=== PATIENT | male | born 1975 | race Caucasian/White ===

== ENCOUNTER 2019-09-25 15:47 | Emergency (ER) | payer BC, OTHER ==
[2019-09-25] MEDS ORDERED: NA CHLORIDE 0.9% 1,000 ML ONE (16:52)
[2019-09-25 17:11] LABS: Absolute Lymphocytes (CBC) 1.3 K/uL (0.7-4.9); Basophils % 0.2 % (0-1.3); Hematocrit 37.6 % (39.6-49.0); Lymphocytes % 13.5 % (15.3-44.8); MPV 8.4 fL (7.6-11.3); RBC Red Blood Cell Count 4.12 M/uL (4.33-5.43)
[2019-09-25 17:27] LABS: Albumin 3.7 g/dL (3.4-5.0); Bilirubin Direct 0.1 mg/dL (0-0.2); Bilirubin Total 0.7 mg/dL (0.2-1.0); Potassium 3.9 mmol/L (3.5-5.1); Protein, Total 7.8 g/dL (6.4-8.2)
--- NOTE | 2019-09-25 17:41 | RAD REPORT ---
EXAM DESCRIPTION: RAD - Chest Single View - 09/25/2019 5:09 pm CLINICAL HISTORY: Cough, back pain COMPARISON: July 2014 TECHNIQUE: AP portable chest image was obtained 1700 hours . FINDINGS: No focal lung parenchymal process. Interstitial pattern is substantially similar to compar jhoan. Heart and vasculature are normal. No measurable pleural effusion and no pneumothorax. No acute bony abnormality seen. No acute aortic findings suspected. IMPRESSION: No acute cardiopulmonary process.
--- NOTE | 2019-09-25 17:57 | RAD REPORT ---
EXAM DESCRIPTION: CT - Abdomen Pelvis W Contrast - 09/25/2019 5:45 pm CLINICAL HISTORY: FLANK PAIN COMPARISON: None. TECHNIQUE: Biphasic, helical CT imaging of the abdomen and pelvis was performed following 100 ml non -ionic IV contrast. No oral contrast. All CT scans are performed using dose optimization technique as appropriate and may include automated exposure control or mA/KV adjustment according to patient size. FINDINGS: No suspicious findings in the lung bases. The liver, spleen, and pancreas show no suspicious findings. Gallbladder and biliary tree are also wi thout suspicious finding. Moderate severity left-sided hydronephrosis is present secondary to a cluster of obstructing calculi in the distal ureter approximately 3-4 cm from the bladder. The obstructing calcification is a cluste r of 1-4 mm calculi that extend over an approximately 15 millimeter length of the ureter. A [address] and a 1 millimeter anterior left kidney calyx calculus also present. Left renal function is delay ed relative to the right. No right-sided hydronephrosis or right-sided calculus. No pyelonephritis or acute parenchymal process. No calculi within the mostly contracted bladder. No adrenal abnormalities . No dilated bowel loops or bowel wall thickening. No free air, free fluid or pneumatosis. Perinephric and periureteral stranding are present. No hernia, mass or bulky lymphadenopathy. No suspicious bony findings. IMPRESSION: Moderate severity left-sided hydronephrosis secondary to a cluster of obstructing calcul i in the distal left ureter approximately 4 cm from the UVJ. The obstructing cluster of calculi consistent 1-4 mm sized calculi extending over a 15 millimeter le ngth of the ureter. On a KUB projection the calculi are mid pelvis level long-term between the left fem oral head and sacral ala.
[2019-09-25] MEDS ORDERED: ONDANSETRON 4 MG/2 ML VIAL ONE (18:17)
[2019-09-25] MEDS ORDERED: MORPHINE 4 MG/ML SYR ONE (18:17)
--- NOTE | 2019-09-25 18:20 | ER ---
Nurse's Notes [facility] Name: Wiley Valle Age: 44 yrs Sex: Male : 1975 Arrival Date: 09/25/2019 Time: 15:51 Bed X-Ray Private MD: Diagnosis: Calculus of ureter-left Presentation: 09/25 15:52 Presenting complaint: Patient states: left low back pain x 1 day, felt like he has been sv having the urge to "pee or poop" pain does not radiate. Denies injury. Transition of care: patient was not received from another setting of care. Onset of symptoms was September 24, 2019. Care prior to arrival: None. 15:52 Method Of Arrival: Ambulatory sv 15:52 Acuity: ADRIANA 3 sv 18:04 Risk Assessment: Do you want to hurt yourself or someone else? Patient reports no ae4 desire to harm self or others. Initial Sepsis Screen: Does the patient meet any 2 criteria? No. Patient's initial sepsis screen is negative. Does the patient have a suspected source of infection? No. Patient's initial sepsis screen is negative. Historical: - Allergies: 15:53 steroids (Rash); sv - PMHx: 15:53 None; sv - PSHx: 15:53 None; sv - Immunization history:: Flu vaccine is not up to date. - Social history:: Smoking status: Patient/guardian denies using tobacco. - Ebola Screening: : No symptoms or risks identified at this time. Screenin:17 Abuse screen: Denies threats or abuse. Nutritional screening: No deficits noted. ae4 Tuberculosis screening: No symptoms or risk factors identified. Fall Risk None identified. Assessment: 17:15 General: Appears in no apparent distress. uncomfortable, Behavior is calm, cooperative, ae4 appropriate for age. Pain: Complains of pain in left low back, left mid back, right mid back and right low back Pain radiates to left mid back and right mid back. Neuro: Level of Consciousness is awake, alert, obeys commands, Oriented to person, place, time, situation, Appropriate for age. Cardiovascular: Patient's skin is warm and dry. Respiratory: Airway is patent Respiratory effort is even, unlabored, Respiratory pattern is regular, symmetrical. GI: No signs and/or symptoms were reported involving the gastrointestinal system. : No signs and/or symptoms were reported regarding the genitourinary system. EENT: No signs and/or symptoms were reported regarding the EENT system. Derm: Skin is pink, warm \\T\\ dry. Musculoskeletal: Reports pain in left low back, left mid back, right mid back and right low back Patient denies injury. 18:25 Reassessment: Pt will be discharged once fluids are done infusing, pt instructed to jl7 keep arm straight to allow fluids to free flow in, approximately 500 ml left in bag at this time. 18:59 Reassessment: Patient returned from radiology, awaiting copy of film to present to ae4 urologist, per provider. 19:34 Reassessment: Patient and/or family updated on plan of care and expected duration. Pain ea level reassessed. Patient is alert, oriented x 3, equal unlabored respirations, skin warm/dry/pink. Discharge instruction given to patient, verbalized the understanding of instruction, pt left ED ambulatory accompanied by family. Vital Signs: 15:54 BP 133 / 87; Pulse 63; Resp 16; Temp 97.1; Pulse Ox 97% ; Weight 90.72 kg; Height 6 ft. sv 1 in. (185.42 cm); Pain 6/10; 17:29 BP 124 / 84; Pulse 68; Resp 16; Pulse Ox 97% on R/A; ae4 18:25 BP 129 / 86; Pulse 65; Resp 16 S; Pulse Ox 99% on R/A; jl7 19:28 BP 128 / 80; Pulse 60; Resp 18; Temp 97.8; Pulse Ox 99% ; ea 15:54 Body Mass Index 26.39 (90.72 kg, 185.42 cm) sv ED Course: 15:51 Patient arrived in ED. mr 15:52 Arm band placed on. sv 15:53 Triage completed. sv 16:20 Elton Muller, LISSETTE is Primary Nurse. ae4 16:31 Arjun Mcdonald NP is PHCP. pm1 16:31 Mick Matos MD is Attending Physician. pm1 16:54 Radiology exam delayed due to lab results not completed at this time. (BUN/Creatinine). mw3 17:09 Chest Single View XRAY In Process Unspecified. EDMS 17:17 Bed in low position. Call light in reach. Side rails up X 1. Pulse ox on. NIBP on. ae4 17:17 Inserted saline lock: 20 gauge in right antecubital area, using aseptic technique. ae4 Blood collected. 17:43 CT completed. Patient tolerated procedure well. Patient moved back from CT. bq 17:46 CT Abd/Pelvis - IV Contrast Only In Process Unspecified. EDMS 18:18 Khanh Bush MD is Referral Physician. pm1 18:25 No provider procedures requiring assistance completed. jl7 18:32 Patient moved to radiology via wheelchair. ae4 18:43 Abdomen 1 View (KUB) XRAY In Process Unspecified. EDMS 19:29 IV discontinued, intact, bleeding controlled, No redness/swelling at site. Pressure ea dressing applied. Administered Medications: 17:00 Drug: NS 0.9% 1000 ml Route: IV; Rate: 1000 ml; Site: right antecubital; ae4 19:00 Follow up: Response: No adverse reaction; IV Status: Completed infusion; IV Intake: ea 1000ml 18:18 Drug: Zofran 4 mg Route: IVP; Site: right antecubital; ae4 18:28 Follow up: Response: No adverse reaction; No adverse reaction, No nausea reported with ae4 pain mediacation administration. 18:20 Drug: morphine 4 mg Route: IVP; Site: right antecubital; ae4 18:28 Follow up: Response: Pain is decreased; RASS: Alert and Calm (0) ae4 18:25 Drug: Flomax 0.4 mg Route: PO; jl7 19:27 Follow up: Response: No adverse reaction ea Intake: 19:00 IV: 1000ml; Total: 1000ml. ea Outcome: 18:19 Discharge ordered by . pm1 19:35 Discharged to home ambulatory. ea 19:35 Condition: stable 19:35 Discharge instructions given to patient, Instructed on discharge instructions, follow up and referral plans. medication usage, Demonstrated understanding of instructions, follow-up care, medications, Prescriptions given X 2. 19:45 Patient left the ED. ea Signatures: Dispatcher [employer] EDMS Acacia De La Garza RN RN sv Rivera, Roxanne Nidia Wiley bq Arjun Mcdonald, [employer]IST pm1 Alejandra Mata RN RN jl7 Sara Marques RN RN ea Willis, Michelle mw3 Elton Muller RN RN ae4 Corrections: (The following items were deleted from the chart) 15:55 15:52 Acuity: ADRIANA 4 sv sv 15:55 15:54 Pulse 63bpm; Resp 16bpm; Pulse Ox 97%; Temp 97.1F; 90.72 kg; Height 6 ft. 1 in.; sv BMI: 26.3; Pain 6/10; sv 19:45 19:34 Reassessment: Patient and/or family updated on plan of care and expected ea duration. Pain level reassessed. Patient is alert, oriented x 3, equal unlabored respirations, skin warm/dry/pink. Discharge instruction given to patient, verbalized the understanding of instruction, pt left ED ambulatory accompanied by family shikha
--- NOTE | 2019-09-25 18:20 | EDPHYS ---
Physician Documentation [facility] Name: Wiley Valle Age: 44 yrs Sex: Male : 1975 Arrival Date: 09/25/2019 Time: 15:51 Bed X-Ray Private MD: ED Physician Mick Matos HPI: 09/25 16:45 This 44 yrs old Male presents to ER via Ambulatory with complaints of Back pm1 Pain. 16:45 The patient presents with pain that is acute, with no known mechanism of injury. The pm1 symptoms are located in the left low back. Onset: The symptoms/episode began/occurred yesterday. Associated signs and symptoms: Pertinent negatives: abdominal pain, dysuria, fever, headache, nausea, numbness, tingling, vomiting, weakness. The problem was sustained from unknown cause. Modifying factors: The patient symptoms are alleviated by pain medication - norco, the patient symptoms are aggravated by nothing. Severity of symptoms: in the emergency department the symptoms have improved, a " 4" out of "10". The patient has experienced a previous episode, many years ago, unknown cause. It is unknown whether or not the patient has recently seen a physician. Historical: - Allergies: 15:53 steroids (Rash); sv - PMHx: 15:53 None; sv - PSHx: 15:53 None; sv - Immunization history:: Flu vaccine is not up to date. - Social history:: Smoking status: Patient/guardian denies using tobacco. - Ebola Screening: : No symptoms or risks identified at this time. ROS: 16:45 : Negative for injury, bleeding, discharge, and swelling, MS/Extremity: Negative for pm1 injury and deformity, Skin: Negative for injury, rash, and discoloration, Neuro: Negative for headache, weakness, numbness, tingling, and seizure. 16:45 Constitutional: Negative for fever, chills, and weight loss, Eyes: Negative for injury, pain, redness, and discharge, ENT: Negative for injury, pain, and discharge, Neck: Negative for injury, pain, and swelling, Cardiovascular: Negative for chest pain, palpitations, and edema, Abdomen/GI: Negative for abdominal pain, nausea, vomiting, diarrhea, and constipation. 16:45 Back: Positive for flank pain, on the left. 16:45 Respiratory: Positive for cough, Negative for shortness of breath, sputum production, pm1 wheezing. Exam: 16:45 Constitutional: This is a well developed, well nourished patient who is awake, alert, pm1 and in no acute distress. Head/Face: Normocephalic, atraumatic. Neck: Trachea midline, no thyromegaly or masses palpated, and no cervical lymphadenopathy. Supple, full range of motion without nuchal rigidity, or vertebral point tenderness. No Meningismus. Chest/axilla: Normal chest wall appearance and motion. Nontender with no deformity. No lesions are appreciated. Cardiovascular: Regular rate and rhythm with a normal S1 and S2. No gallops, murmurs, or rubs. Normal PMI, no JVD. No pulse deficits. Abdomen/GI: Soft, non-tender, with normal bowel sounds. No distension or tympany. No guarding or rebound. No evidence of tenderness throughout. Skin: Warm, dry with normal turgor. Normal color with no rashes, no lesions, and no evidence of cellulitis. MS/ Extremity: Pulses equal, no cyanosis. Neurovascular intact. Full, normal range of motion. 16:45 Back: pain, that is very mild, of the left low back, normal spinal alignment noted, vertebral tenderness, is not appreciated. 16:45 Neuro: Orientation: is normal, Mentation: is normal, Motor: is normal, moves all fours. 16:45 Respiratory: Lungs have equal breath sounds bilaterally, clear to auscultation and pm1 percussion. No rales, rhonchi or wheezes noted. No increased work of breathing, no retractions or nasal flaring. Vital Signs: 15:54 BP 133 / 87; Pulse 63; Resp 16; Temp 97.1; Pulse Ox 97% ; Weight 90.72 kg; Height 6 ft. sv 1 in. (185.42 cm); Pain 6/10; 17:29 BP 124 / 84; Pulse 68; Resp 16; Pulse Ox 97% on R/A; ae4 18:25 BP 129 / 86; Pulse 65; Resp 16 S; Pulse Ox 99% on R/A; jl7 19:28 BP 128 / 80; Pulse 60; Resp 18; Temp 97.8; Pulse Ox 99% ; ea 15:54 Body Mass Index 26.39 (90.72 kg, 185.42 cm) sv MDM: 16:47 Patient medically screened. pm1 16:47 Data interpreted: Pulse oximetry: on room air is 97 %. Interpretation: normal. pm1 16:47 ED course: Patient refused pain medications. pm1 17:21 Data reviewed: vital signs. pm1 18:17 Counseling: I had a detailed discussion with the patient and/or guardian regarding: the pm1 historical points, exam findings, and any diagnostic results supporting the discharge/admit diagnosis, lab results, radiology results, the need for outpatient follow up, for definitive care, a urologist, to return to the emergency department if symptoms worsen or persist or if there are any questions or concerns that arise at home. 18:17 Physician consultation: Khanh Bush MD was called at 18:17, was contacted at 18:17, pm1 regarding consult, patient's condition, and will see patient in office, tomorrow. Have patient call the office in the morning to set up appointment tomorrow and to bring his KUB for lithotripsy. 09/25 16:45 Order name: Basic Metabolic Panel; Complete Time: 17:44 pm1 09/25 16:45 Order name: CBC with Diff; Complete Time: 17:21 pm1 09/25 16:45 Order name: Creatinine for Radiology; Complete Time: 17:25 pm1 09/25 16:45 Order name: Hepatic Function; Complete Time: 17:44 pm1 09/25 16:45 Order name: Lipase; Complete Time: 17:44 pm1 09/25 16:45 Order name: Urine Microscopic Only; Complete Time: 18:41 pm1 09/25 16:45 Order name: CT Abd/Pelvis - IV Contrast Only; Complete Time: 18:02 pm1 09/25 16:45 Order name: Chest Single View XRAY; Complete Time: 17:44 pm1 09/25 17:31 Order name: Urine Dipstick--Ancillary (enter results); Complete Time: 18:29 ms 09/25 18:21 Order name: Abdomen 1 View (KUB) XRAY pm1 09/25 16:45 Order name: IV Saline Lock; Complete Time: 17:09 pm1 09/25 16:45 Order name: Labs collected and sent; Complete Time: 17:09 pm1 09/25 16:45 Order name: Urine Dipstick-Ancillary (obtain specimen); Complete Time: 18:05 pm1 Administered Medications: 17:00 Drug: NS 0.9% 1000 ml Route: IV; Rate: 1000 ml; Site: right antecubital; ae4 19:00 Follow up: Response: No adverse reaction; IV Status: Completed infusion; IV Intake: ea 1000ml 18:18 Drug: Zofran 4 mg Route: IVP; Site: right antecubital; ae4 18:28 Follow up: Response: No adverse reaction; No adverse reaction, No nausea reported with ae4 pain mediacation administration. 18:20 Drug: morphine 4 mg Route: IVP; Site: right antecubital; ae4 18:28 Follow up: Response: Pain is decreased; RASS: Alert and Calm (0) ae4 18:25 Drug: Flomax 0.4 mg Route: PO; jl7 19:27 Follow up: Response: No adverse reaction ea Disposition: 09/26 07:34 Co-signature as Attending Physician, Mick Matos MD I agree with the assessment and kdr plan of care. Disposition: 09/25/19 18:19 Discharged to Home. Impression: Calculus of ureter - left. - Condition is Stable. - Discharge Instructions: Kidney Stones, Dietary Guidelines to Help Prevent Kidney Stones. - Prescriptions for Tylenol- Codeine #3 300-30 mg Oral Tablet - take 2 tablets by ORAL route every 6 hours As needed; 20 tablet. Flomax 0.4 mg Oral Capsule, Sust. Release 24 hr - take 1 capsule by ORAL route once daily 1/2 hour following the same meal each day; 30 capsule. - Medication Reconciliation Form, Thank You Letter, Antibiotic Education, Prescription Opioid Use form. - Follow up: Emergency Department; When: As needed; Reason: Worsening of condition. Follow up: Khanh Bush MD; When: Tomorrow; Reason: Recheck today's complaints, Continuance of care, Re-evaluation by your physician. - Problem is new. - Symptoms have improved. Signatures: Dispatcher [employer] Acacia Ortez RN Mick Moe MD MD kdr Marinas, Patrick, [employer]GER pm1 Alejandra Mata RN RN jl7 Sara Marques RN RN ea Elliott, Andrea RN RN ae4 Corrections: (The following items were deleted from the chart) 09/25 17:25 16:45 Constitutional: This is a well developed, well nourished patient who is awake, pm1 alert, and in no acute distress. Head/Face: Normocephalic, atraumatic. Neck: Trachea midline, no thyromegaly or masses palpated, and no cervical lymphadenopathy. Supple, full range of motion without nuchal rigidity, or vertebral point tenderness. No Meningismus. Chest/axilla: Normal chest wall appearance and motion. Nontender with no deformity. No lesions are appreciated. Cardiovascular: Regular rate and rhythm with a normal S1 and S2. No gallops, murmurs, or rubs. Normal PMI, no JVD. No pulse deficits. Respiratory: Lungs have equal breath sounds bilaterally, clear to auscultation and percussion. No rales, rhonchi or wheezes noted. No increased work of breathing, no retractions or nasal flaring. Abdomen/GI: Soft, non-tender, with normal bowel sounds. No distension or tympany. No guarding or rebound. No evidence of tenderness throughout. Skin: Warm, dry with normal turgor. Normal color with no rashes, no lesions, and no evidence of cellulitis. MS/ Extremity: Pulses equal, no cyanosis. Neurovascular intact. Full, normal range of motion. pm1 17:27 16:45 Constitutional: Negative for fever, chills, and weight loss, Eyes: Negative for pm1 injury, pain, redness, and discharge, ENT: Negative for injury, pain, and discharge, Neck: Negative for injury, pain, and swelling, Cardiovascular: Negative for chest pain, palpitations, and edema, Respiratory: Negative for shortness of breath, cough, wheezing, and pleuritic chest pain, Abdomen/GI: Negative for abdominal pain, nausea, vomiting, diarrhea, and constipation, pm1 19:45 18:19 09/25/2019 18:19 Discharged to Home. Impression: Calculus of ureter - left. ea Condition is Stable. Forms are Medication Reconciliation Form, Thank You Letter, Antibiotic Education, Prescription Opioid Use. Follow up: Emergency Department; When: As needed; Reason: Worsening of condition. Follow up: Khanh Bush; When: Tomorrow; Reason: Recheck today's complaints, Continuance of care, Re-evaluation by your physician. Problem is new. Symptoms have improved. pm1
[2019-09-25 18:21] LABS: Urine Blood 2+ (NEG); Urine Glucose NEGATIVE (NEG); Urine Protein NEGATIVE (NEG); Urine Specific Gravity 1.025 (1.005-1.030)
[2019-09-25] MEDS ORDERED: TAMSULOSIN 0.4 MG SR CAP ONE (18:24)
[2019-09-25 18:31] LABS: Urine Bacteria <20 /HPF (NONE SEEN); Urine Culture Reflex Order NOT NEEDED
--- NOTE | 2019-09-25 20:34 | RAD REPORT ---
EXAM DESCRIPTION: RAD - Abdomen 1 View (KUB) - 09/25/2019 6:44 pm CLINICAL HISTORY: Left ureteral calculi COMPARISON: Abdomen Pelvis W Contrast dated 09/25/2019 FINDINGS: The obstructing calculi detailed on the CT study are visible on this examination in the le ft mid pelvis. These are inferior to the left SI joint. Contrast is present in the bladder from diagn ostic study performed earlier. No bowel obstruction, free air or pneumatosis. No significant bony findings IMPRESSION: The obstructing calculi seen on the CT study are visible on this examination. Calcificat ions are clustered in the left mid pelvis inferior to the left SI joint.
[2019-09-25 21:16] VITALS: O2SAT 99
[2019-09-25 21:18] VITALS: BP 128/80; TEMP 97.8
== END 2019-09-25 19:45 | disposition home or self-care (01) ==
LOC: ER 15:47
DX: N20.1 Calculus of ureter (principal); Z88.8 Allergy status to other drugs, medicaments and biological substances
CPT/HCPCS: 96361; 85025; 80048; 36415; 80076; 83690; 74177; 74018; 71045; 96375; 96374; 99284; Q9967; J7030; J2405; 81003; 81015

== ENCOUNTER 2019-12-07 06:27 | Emergency (ER) | payer BC ==
[2019-12-07] MEDS ORDERED: ONDANSETRON 4 MG/2 ML VIAL ONE (06:53)
[2019-12-07] MEDS ORDERED: NA CHLORIDE 0.9% 1,000 ML ONE (06:53)
[2019-12-07] MEDS ORDERED: HYDROMORPHONE HCL 1 MG/ML INJ ONE (06:53)
[2019-12-07 07:00] LABS: Absolute Lymphocytes (CBC) 1.5 K/uL (0.7-4.9); Basophils % 0.6 % (0-1.3); Hematocrit 38.3 % (39.6-49.0); Lymphocytes % 31.2 % (15.3-44.8); MPV 8.8 fL (7.6-11.3); RBC Red Blood Cell Count 4.18 M/uL (4.33-5.43)
[2019-12-07 07:16] LABS: Albumin 4.1 g/dL (3.4-5.0); Bilirubin Direct 0.3 mg/dL (0-0.2); Bilirubin Total 1.4 mg/dL (0.2-1.0); Potassium 3.8 mmol/L (3.5-5.1); Protein, Total 7.6 g/dL (6.4-8.2)
--- NOTE | 2019-12-07 07:36 | RAD REPORT ---
EXAM DESCRIPTION: CT - Stone Protocol - 12/07/2019 7:01 am CLINICAL HISTORY: Abdominal pain. COMPARISON: September 2019 TECHNIQUE: Computed axial tomography of the abdomen pelvis was obtained without oral or IV contrast. Lack of IV and oral contrast limits evaluation of solid organs, bowel, and vessels. Coronal reformat nyla images were obtained and reviewed. All CT scans are performed using dose optimization technique as appropriate and may include automated exposure control or mA/KV adjustment according to patient size. FINDINGS: A right renal calculus is not seen. Mild right hydronephrosis. Right ureter is mildly dila nyla. A 4 x 2 millimeter calculus right UVJ. A several small left renal calculi without hydronephrosis . A left ureteral calculus is not seen. The liver, spleen, pancreas and adrenals appear grossly normal There is no evidence of diverticulitis. IMPRESSION: A 4 millimeter calculus right UPJ resulting in mild right hydronephrosis
--- NOTE | 2019-12-07 07:41 | ER ---
Nurse's Notes [facility] Name: Wiley Valle Age: 44 yrs Sex: Male : 1975 Arrival Date: 12/07/2019 Time: 06:27 Bed 13 Private MD: Diagnosis: Hydronephrosis with renal and ureteral calculous obstruction-4mm upj Presentation: 12/07 06:39 Presenting complaint: Patient states: A couple days ago I started having pain and jb4 burning with urination and the sensation that I could not fully empty my bladder. It has since radiated to my right kidney and it feels just like a stone. I have taken 3 doses of Ketorolac 10mg since 2am. 06:39 Transition of care: patient was not received from another setting of care. Onset of jb4 symptoms was December 05, 2019. Risk Assessment: Do you want to hurt yourself or someone else? Patient reports no desire to harm self or others. Initial Sepsis Screen: Does the patient meet any 2 criteria? No. Patient's initial sepsis screen is negative. Does the patient have a suspected source of infection? No. Patient's initial sepsis screen is negative. Care prior to arrival: None. 06:39 Method Of Arrival: Ambulatory jb4 06:39 Acuity: ADRIANA 3 jb4 Historical: - Allergies: 06:43 steroids (rash); jb4 - Home Meds: 06:43 Nitrofurantoin Macrocrystal Oral [Active]; ketorolac 10 mg Oral tab 1 tab every 6 hours jb4 [Active]; - PMHx: 06:43 Kidney stones; jb4 - PSHx: 06:43 Lithotripsy; jb4 - Immunization history:: Adult Immunizations up to date. - Coronavirus screen:: The patient has NOT traveled to [place], [place], or [place] in the past 14 days. Proceed with normal triage process as indicated. The patient has NOT had contact with known/suspected case of Coronavirus? Proceed with normal triage procedures. - Social history:: Smoking status: Patient denies any tobacco usage or history of. Patient uses alcohol, occasionally. Patient/guardian denies using street drugs. - Family history:: not pertinent. - Ebola Screening: : No symptoms or risks identified at this time. Screenin:45 Abuse screen: Denies threats or abuse. Nutritional screening: No deficits noted. jb4 Tuberculosis screening: No symptoms or risk factors identified. Fall Risk None identified. Assessment: 06:45 General: Appears in no apparent distress. uncomfortable, Behavior is calm, cooperative, jb4 appropriate for age. Pain: Complains of pain in right low back Pain does not radiate. Pain currently is 8 out of 10 on a pain scale. Quality of pain is described as stabbing, Pain began 2-3 days ago. Is continuous. Neuro: Level of Consciousness is awake, alert, obeys commands, Oriented to person, place, time, situation. Cardiovascular: Patient's skin is warm and dry. Respiratory: Airway is patent Respiratory effort is even, unlabored, Respiratory pattern is regular, symmetrical. GI: No signs and/or symptoms were reported involving the gastrointestinal system. : Reports burning with urination, since 2 days ago pain in right in lower back with urination. EENT: No signs and/or symptoms were reported regarding the EENT system. Derm: Skin is intact, Skin is pink, warm \T\ dry. Musculoskeletal: Circulation, motion, and sensation intact. Range of motion: intact in all extremities. 07:45 Reassessment: Patient appears in no apparent distress at this time. Patient and/or ph family updated on plan of care and expected duration. Pain level reassessed. Patient is alert, oriented x 3, equal unlabored respirations, skin warm/dry/pink. D/C pending KUB and results. 08:35 Reassessment: Pt taken to radiology via wheelchair. ph 09:29 Reassessment: Patient appears in no apparent distress at this time. Patient and/or ph family updated on plan of care and expected duration. Pain level reassessed. Patient is alert, oriented x 3, equal unlabored respirations, skin warm/dry/pink. Pt provided w/ urine strainer and d/c home w/ SO, instructed to follow up w/ urologist. Vital Signs: 06:43 BP 124 / 82; Pulse 72; Resp 16; Temp 97.8(O); Pulse Ox 96% on R/A; Weight 92.99 kg (R); jb4 Height 6 ft. 1 in. (185.42 cm) (R); Pain 8/10; 08:00 BP 115 / 76; Pulse 68; Resp 18; Pulse Ox 100% ; Pain 4/10; ph 09:00 BP 118 / 78; Pulse 69; Resp 16; Temp 97.5; Pulse Ox 99% ; Pain 5/10; ph 06:43 Body Mass Index 27.05 (92.99 kg, 185.42 cm) jb4 ED Course: 06:27 Patient arrived in ED. ag3 06:36 William Lazcano MD is Attending Physician. ed 06:39 Benja Carlson, LISSETTE is Primary Nurse. jb4 06:41 Triage completed. jb4 06:43 Arm band placed on right wrist. jb4 06:45 Patient has correct armband on for positive identification. Bed in low position. Call jb4 light in reach. Side rails up X 1. Pulse ox on. NIBP on. 06:45 Inserted saline lock: 20 gauge in right antecubital area, using aseptic technique. jb4 Blood collected. 07:40 Khanh Bush MD is Referral Physician. [facility] 08:41 No provider procedures requiring assistance completed. Patient admitted, IV remains in ph place. Administered Medications: 06:53 Drug: Zofran 4 mg Route: IVP; Site: right antecubital; 4 07:15 Follow up: Response: No adverse reaction; Nausea is decreased; Vomiting decreased ph 06:56 Drug: Dilaudid 1 mg {Note: Rass score 0.} Route: IVP; Site: right antecubital; 4 07:15 Follow up: Response: No adverse reaction; Pain is decreased ph 07:08 Drug: NS 0.9% 1000 ml Route: IV; Rate: 1 bolus; Site: right antecubital; 4 08:20 Follow up: Response: No adverse reaction; IV Status: Completed infusion; IV Intake: ph 1000ml 07:45 Drug: Rocephin 1 grams Route: IV; Rate: per protocol; Site: right antecubital; ph 08:15 Follow up: Response: No adverse reaction; IV Status: Completed infusion ph 07:45 Drug: Flomax 0.4 mg Route: PO; ph 08:15 Follow up: Response: No adverse reaction ph 08:06 Drug: NS 0.9% 1000 ml Route: IV; Rate: 1 bolus; Site: right antecubital; ph 09:20 Follow up: Response: No adverse reaction; IV Status: Completed infusion; IV Intake: ph 1000ml Intake: 08:20 IV: 1000ml; Total: 1000ml. ph 09:20 IV: 1000ml; Total: 2000ml. ph Outcome: 07:40 Discharge ordered by . [facility] 09: Patient left the ED. ph 09:28 Condition: improved ph 09:28 Discharged to home ambulatory, with significant other. ph 09:28 Discharge instructions given to patient, Instructed on discharge instructions, follow up and referral plans. medication usage, urine strainer, Demonstrated understanding of instructions, follow-up care, medications, Prescriptions given X 4. Signatures: William Lazcano MD MD cha Hall, Patricia RN RN Benja Carlson RN RN jb4 Shakira Baca ag3 Corrections: (The following items were deleted from the chart) 06:45 06:39 Presenting complaint: Patient states: A couple days ago I started having pain and jb4 burning with urination and the sensation that I could not fully empty my bladder. It has since radiated to my right kidney and it feels just like a stone. jb4 06:57 06:56 Dilaudid 1 mg IVP in right antecubital jb4 jb4 09:38 08:41 Condition: stable ph ph 09:38 08:41 Admitted to Med/surg accompanied by tech, family with patient, via wheelchair, ph room 415, with chart, Report called to Shadia gutiérrez
--- NOTE | 2019-12-07 07:42 | EDPHYS ---
Physician Documentation [facility] Name: Wiley Valle Age: 44 yrs Sex: Male : 1975 Arrival Date: 12/07/2019 Time: 06:27 Bed 13 Private MD: ED Physician William Lazcano HPI: 12/07 07:35 This 44 yrs old Male presents to ER via Ambulatory with complaints of Low ed Back Pain. 07:35 The patient presents with pain that is acute, and decreased range of motion. The ed symptoms are located in the low back. The pain radiates to the right mid back and right low back. The problem was sustained from unknown cause. Onset: The symptoms/episode began/occurred last night. Modifying factors: The patient symptoms are alleviated by nothing, the patient symptoms are aggravated by nothing. Associated signs and symptoms: The patient has no apparent associated signs or symptoms. Severity of symptoms: At their worst the symptoms were moderate, in the emergency department the symptoms are unchanged. The patient has experienced similar episodes in the past, a few times. Historical: - Allergies: 06:43 steroids (rash); jb4 - Home Meds: 06:43 Nitrofurantoin Macrocrystal Oral [Active]; ketorolac 10 mg Oral tab 1 tab every 6 hours jb4 [Active]; - PMHx: 06:43 Kidney stones; jb4 - PSHx: 06:43 Lithotripsy; jb4 - Immunization history:: Adult Immunizations up to date. - Coronavirus screen:: The patient has NOT traveled to [place], [place], or [place] in the past 14 days. Proceed with normal triage process as indicated. The patient has NOT had contact with known/suspected case of Coronavirus? Proceed with normal triage procedures. - Social history:: Smoking status: Patient denies any tobacco usage or history of. Patient uses alcohol, occasionally. Patient/guardian denies using street drugs. - Family history:: not pertinent. - Ebola Screening: : No symptoms or risks identified at this time. ROS: 07:35 Constitutional: Negative for fever, chills, and weight loss, Eyes: Negative for injury, ed pain, redness, and discharge, ENT: Negative for injury, pain, and discharge, Neck: Negative for injury, pain, and swelling, Cardiovascular: Negative for chest pain, palpitations, and edema, Respiratory: Negative for shortness of breath, cough, wheezing, and pleuritic chest pain, Abdomen/GI: Negative for abdominal pain, nausea, vomiting, diarrhea, and constipation, : Negative for injury, bleeding, discharge, and swelling, MS/Extremity: Negative for injury and deformity, Skin: Negative for injury, rash, and discoloration, Neuro: Negative for headache, weakness, numbness, tingling, and seizure, Psych: Negative for depression, anxiety, suicide ideation, homicidal ideation, and hallucinations, Allergy/Immunology: Negative for hives, rash, and allergies, Endocrine: Negative for neck swelling, polydipsia, polyuria, polyphagia, and marked weight changes, Hematologic/Lymphatic: Negative for swollen nodes, abnormal bleeding, and unusual bruising. 07:35 Back: Positive for flank pain, on the right. Exam: 07:35 Constitutional: This is a well developed, well nourished patient who is awake, alert, ed and in no acute distress. Head/Face: Normocephalic, atraumatic. Eyes: Pupils equal round and reactive to light, extra-ocular motions intact. Lids and lashes normal. Conjunctiva and sclera are non-icteric and not injected. Cornea within normal limits. Periorbital areas with no swelling, redness, or edema. ENT: Nares patent. No nasal discharge, no septal abnormalities noted. Tympanic membranes are normal and external auditory canals are clear. Oropharynx with no redness, swelling, or masses, exudates, or evidence of obstruction, uvula midline. Mucous membranes moist. Neck: Trachea midline, no thyromegaly or masses palpated, and no cervical lymphadenopathy. Supple, full range of motion without nuchal rigidity, or vertebral point tenderness. No Meningismus. Chest/axilla: Normal chest wall appearance and motion. Nontender with no deformity. No lesions are appreciated. Cardiovascular: Regular rate and rhythm with a normal S1 and S2. No gallops, murmurs, or rubs. Normal PMI, no JVD. No pulse deficits. Respiratory: Lungs have equal breath sounds bilaterally, clear to auscultation and percussion. No rales, rhonchi or wheezes noted. No increased work of breathing, no retractions or nasal flaring. Abdomen/GI: Soft, non-tender, with normal bowel sounds. No distension or tympany. No guarding or rebound. No evidence of tenderness throughout. Male : Normal genitalia with no discharge or lesions. Skin: Warm, dry with normal turgor. Normal color with no rashes, no lesions, and no evidence of cellulitis. MS/ Extremity: Pulses equal, no cyanosis. Neurovascular intact. Full, normal range of motion. Neuro: Awake and alert, GCS 15, oriented to person, place, time, and situation. Cranial nerves II-XII grossly intact. Motor strength 5/5 in all extremities. Sensory grossly intact. Cerebellar exam normal. Normal gait. Psych: Awake, alert, with orientation to person, place and time. Behavior, mood, and affect are within normal limits. 07:35 Back: pain, that is moderate, ROM is painful, normal spinal alignment noted, CVA tenderness, is absent, vertebral tenderness, is not appreciated, muscle spasm, is not present. Vital Signs: 06:43 BP 124 / 82; Pulse 72; Resp 16; Temp 97.8(O); Pulse Ox 96% on R/A; Weight 92.99 kg (R); jb4 Height 6 ft. 1 in. (185.42 cm) (R); Pain 8/10; 08:00 BP 115 / 76; Pulse 68; Resp 18; Pulse Ox 100% ; Pain 4/10; ph 09:00 BP 118 / 78; Pulse 69; Resp 16; Temp 97.5; Pulse Ox 99% ; Pain 5/10; ph 06:43 Body Mass Index 27.05 (92.99 kg, 185.42 cm) jb4 MDM: 06:36 Patient medically screened. [facility] 07:49 Data reviewed: vital signs, nurses notes, lab test result(s), radiologic studies, CT ed scan, plain films. 12/07 06:39 Order name: Basic Metabolic Panel [facility] 12/07 06:39 Order name: CBC with Diff [facility] 12/07 06:39 Order name: Creatinine for Radiology [facility] 12/07 06:39 Order name: Hepatic Function [facility] 12/07 06:39 Order name: Lipase [facility] 12/07 06:39 Order name: Urine Culture [facility] 12/07 06:47 Order name: CT Stone Protocol [facility] 12/07 07:04 Order name: CBC with Automated Diff; Complete Time: 07:34 EDMS 12/07 07:15 Order name: Creatinine (Radiology Only); Complete Time: 07:34 EDMS 12/07 07:16 Order name: Basic Metabolic Panel; Complete Time: 07:34 EDMS 12/07 07:16 Order name: Liver (Hepatic) Function; Complete Time: 07:34 EDMS 12/07 07:16 Order name: Lipase; Complete Time: 07:34 EDMS 12/07 07:37 Order name: CT; Complete Time: 07:45 EDMS 12/07 07:49 Order name: Urine Dipstick--Ancillary (enter results) 12/07 06:39 Order name: IV Saline Lock; Complete Time: 09:36 [facility] 12/07 06:39 Order name: Labs collected and sent; Complete Time: 09:36 [facility] 12/07 06:39 Order name: Urine Dipstick-Ancillary (obtain specimen) [facility] 12/07 07:45 Order name: Abdomen 1 View (KUB) XRAY [facility] 12/07 08:52 Order name: RAD EDMS Administered Medications: 06:53 Drug: Zofran 4 mg Route: IVP; Site: right antecubital; 4 07:15 Follow up: Response: No adverse reaction; Nausea is decreased; Vomiting decreased ph 06:56 Drug: Dilaudid 1 mg {Note: Rass score 0.} Route: IVP; Site: right antecubital; 4 07:15 Follow up: Response: No adverse reaction; Pain is decreased ph 07:08 Drug: NS 0.9% 1000 ml Route: IV; Rate: 1 bolus; Site: right antecubital; jb4 08:20 Follow up: Response: No adverse reaction; IV Status: Completed infusion; IV Intake: ph 1000ml 07:45 Drug: Rocephin 1 grams Route: IV; Rate: per protocol; Site: right antecubital; ph 08:15 Follow up: Response: No adverse reaction; IV Status: Completed infusion ph 07:45 Drug: Flomax 0.4 mg Route: PO; ph 08:15 Follow up: Response: No adverse reaction ph 08:06 Drug: NS 0.9% 1000 ml Route: IV; Rate: 1 bolus; Site: right antecubital; ph 09:20 Follow up: Response: No adverse reaction; IV Status: Completed infusion; IV Intake: ph 1000ml Disposition: 12/07/19 07:40 Discharged to Home. Impression: Hydronephrosis with renal and ureteral calculous obstruction - 4mm upj. - Condition is Stable. - Discharge Instructions: Kidney Stones, Kidney Stones, [id number], Hydronephrosis, Dietary Guidelines to Help Prevent Kidney Stones. - Prescriptions for Tylenol- Codeine #3 300-30 mg Oral Tablet - take 2 tablet by ORAL route every 6 hours As needed; 30 tablet. Zofran 4 mg Oral Tablet - take 1 tablet by ORAL route every 12 hours As needed; 20 tablet. Flomax 0.4 mg Oral Capsule, Sust. Release 24 hr - take 1 capsule by ORAL route once daily 1/2 hour following the same meal each day; 30 capsule. Cipro 500 mg Oral Tablet - take 1 tablet by ORAL route every 12 hours for 7 days; 14 tablet. - Medication Reconciliation Form, Thank You Letter, Antibiotic Education, Prescription Opioid Use form. - Follow up: Private Physician; When: 2 - 3 days; Reason: Recheck today's complaints, Continuance of care, Re-evaluation by your physician. Follow up: Khanh Bush MD; When: 2 - 3 days; Reason: Recheck today's complaints, Continuance of care, Re-evaluation by your physician. - Problem is new. - Symptoms have improved. Signatures: Dispatcher [employer] EDMS William Lazcano MD MD cha Hall, Patricia, RN RN Benja Duggan RN RN jb4 Corrections: (The following items were deleted from the chart) 09:28 07:40 12/07/2019 07:40 Discharged to Home. Impression: Hydronephrosis with renal and ph ureteral calculous obstruction - 4mm upj. Condition is Stable. Forms are Medication Reconciliation Form, Thank You Letter, Antibiotic Education, Prescription Opioid Use. Follow up: Private Physician; When: 2 - 3 days; Reason: Recheck today's complaints, Continuance of care, Re-evaluation by your physician. Follow up: Khanh Bush; When: 2 - 3 days; Reason: Recheck today's complaints, Continuance of care, Re-evaluation by your physician. Problem is new. Symptoms have improved. ed
[2019-12-07] MEDS ORDERED: CEFTRIAXONE/SWI 1gm 1 GM/10 ML SYR ONE (07:43)
[2019-12-07] MEDS ORDERED: TAMSULOSIN 0.4 MG SR CAP ONE (07:43)
--- NOTE | 2019-12-07 08:45 | RAD REPORT ---
EXAM DESCRIPTION: RAD - Abdomen 1 View (KUB) - 12/07/2019 8:23 am CLINICAL HISTORY: Abdomen pain. FINDINGS: The bowel gas pattern is unremarkable. The patient's known right UVJ stone is not clearly visualized on this examination Small left renal calculi
[2019-12-07 09:43] LABS: Urine Blood 2+ (NEG); Urine Glucose NEGATIVE (NEG); Urine Protein 2+ (NEG); Urine Specific Gravity >1.030 (1.005-1.030); Urine pH 5.5 (5.0-7.0)
[2019-12-07 11:54] VITALS: BP 124/82; TEMP 97.8; O2SAT 96
== END 2019-12-07 09:28 | disposition home or self-care (01) ==
LOC: ER 06:27
DX: N13.2 Hydronephrosis with renal and ureteral calculous obstruction (principal); Z87.442 Personal history of urinary calculi; Z88.8 Allergy status to other drugs, medicaments and biological substances
CPT/HCPCS: 96365; 96361; 87088; 85025; 80048; 36415; 80076; 81003; 83690; 76377; 74176; 74018; 96375; 99284; J1170; J0696; J7030; J2405; 87086

== ENCOUNTER 2020-02-04 03:12 | Emergency (ER) | payer BC ==
[2020-02-04 04:19] LABS: Protime INR 0.98
[2020-02-04 04:20] LABS: Absolute Lymphocytes (CBC) 1.5 K/uL (0.7-4.9); Basophils % 0.5 % (0-1.3); Hematocrit 41.6 % (39.6-49.0); Lymphocytes % 28.2 % (15.3-44.8); MPV 9.1 fL (7.6-11.3); RBC Red Blood Cell Count 4.52 M/uL (4.33-5.43)
[2020-02-04 04:36] LABS: ALT/SGPT 24 U/L (12-78); AST/SGOT 22 U/L (15-37); Alkaline Phosphatase 69 U/L (45-117); BUN Blood Urea Nitrogen 15 mg/dL (7-18); Bicarbonate 26 mmol/L (21-32); Bilirubin Direct 0.2 mg/dL (0-0.2); Bilirubin Total 0.8 mg/dL (0.2-1.0); Glucose Level 97 mg/dL (74-106); NT PRO-BNP 12 pg/mL (<125); Potassium 3.8 mmol/L (3.5-5.1); Protein, Total 7.8 g/dL (6.4-8.2); Sodium Level 141 mmol/L (136-145); Troponin (Emerg Dept Use Only) < 0.02 ng/mL (0.0-0.045)
--- NOTE | 2020-02-04 06:09 | ER ---
Nurse's Notes [facility] Name: Wiley Valle Age: 44 yrs Sex: Male : 1975 Arrival Date: 02/04/2020 Time: 03:14 Bed 18 Private MD: Diagnosis: Dyspnea Presentation: 02/03 03:18 Chief complaint: Patient states: I was at home and have not been able to sleep since jb4 around 10pm. I feel short of breath and my throat and chest just feel tight. 03:18 Coronavirus screen: Patient denies fever greater than 100.4F, cough, shortness of jb4 breath, or difficulty breathing. Proceed with normal triage process. Ebola Screen: No symptoms or risks identified at this time. Initial Sepsis Screen: Does the patient meet any 2 criteria? No. Patient's initial sepsis screen is negative. Does the patient have a suspected source of infection? No. Patient's initial sepsis screen is negative. Risk Assessment: Do you want to hurt yourself or someone else? Patient reports no desire to harm self or others. Transition of care: patient was not received from another setting of care. 03:18 Method Of Arrival: Ambulatory jb4 03:18 Acuity: ADRIANA 3 jb4 Triage Assessment: 03:18 Respiratory: Reports shortness of breath at rest Onset: The symptoms/episode jb4 began/occurred gradually, the patient has mild shortness of breath. Historical: - Allergies: 03:18 steroids (rash); jb4 - Home Meds: 03:18 None [Active]; jb4 - PMHx: 03:18 Kidney stones; jb4 - PSHx: 03:18 Lithotripsy; jb4 - Immunization history:: Adult Immunizations up to date. - Social history:: Smoking status: Patient denies any tobacco usage or history of. Patient uses alcohol, occasionally. Patient/guardian denies using street drugs. - Family history:: not pertinent. Screenin:18 Abuse screen: Denies threats or abuse. Nutritional screening: No deficits noted. jb4 Tuberculosis screening: No symptoms or risk factors identified. Fall Risk None identified. Assessment: 03:18 General: Appears in no apparent distress. comfortable, Behavior is calm, cooperative, jb4 appropriate for age. Pain: Denies pain. Neuro: Level of Consciousness is awake, alert, obeys commands, Oriented to person, place, time, situation. Cardiovascular: Heart tones S1 S2 present Patient's skin is warm and dry. Rhythm is sinus rhythm. Respiratory: Airway is patent Respiratory effort is even, unlabored, Respiratory pattern is regular, symmetrical, Breath sounds are clear bilaterally. GI: No signs and/or symptoms were reported involving the gastrointestinal system. : No signs and/or symptoms were reported regarding the genitourinary system. EENT: No signs and/or symptoms were reported regarding the EENT system. Derm: Skin is intact, Skin is pink, warm \T\ dry. Musculoskeletal: Circulation, motion, and sensation intact. Range of motion: intact in all extremities. 04:15 Reassessment: Patient appears in no apparent distress at this time. Patient and/or jb4 family updated on plan of care and expected duration. Pain level reassessed. Patient is alert, oriented x 3, equal unlabored respirations, skin warm/dry/pink. Pt reports dizziness worsens when he stands up. Orthostatic blood pressures performed. Pt reports an increase in chest tightness on the left side of his chest when standing. Provider notified. 04:50 Reassessment: Pt to Ct. jb4 05:33 Reassessment: Patient appears in no apparent distress at this time. Patient and/or jb4 family updated on plan of care and expected duration. Pain level reassessed. Patient is alert, oriented x 3, equal unlabored respirations, skin warm/dry/pink. 06:28 Reassessment: Patient appears in no apparent distress at this time. Patient and/or jb4 family updated on plan of care and expected duration. Pain level reassessed. Patient is alert, oriented x 3, equal unlabored respirations, skin warm/dry/pink. PT verbalized understanding of d/c and follow up instructions. Denies questions or concerns. Ambulated out of ED with steady gait. Vital Signs: 03:18 BP 125 / 77; Pulse 67; Resp 18; Temp 98.6(O); Pulse Ox 100% on R/A; Weight 90.72 kg jb4 (R); Height 6 ft. 1 in. (185.42 cm); Pain 0/10; 04:08 BP 115 / 63 LA Supine; Pulse 69; Resp 16; Pulse Ox 99% on R/A; jb4 04:09 BP 108 / 81 LA Sitting; Pulse 74; Resp 16; Pulse Ox 100% on R/A; jb4 04:11 BP 108 / 79; Pulse 62; Resp 18; Pulse Ox 100% on R/A; jb4 05:30 BP 109 / 74; Pulse 60; Resp 10; Pulse Ox 100% on R/A; jb4 06:15 BP 110 / 66; Pulse 65; Resp 16; Pulse Ox 100% on R/A; jb4 03:18 Body Mass Index 26.39 (90.72 kg, 185.42 cm) jb4 ED Course: 03:14 Patient arrived in ED. ds1 03:17 William Lazcano MD is Attending Physician. ed 03:18 Arm band placed on right wrist. jb4 03:18 Patient has correct armband on for positive identification. Placed in gown. Bed in low jb4 position. Call light in reach. Side rails up X 1. court recording monitor on. Pulse ox on. NIBP on. 03:26 Benja Carlson, RN is Primary Nurse. jb4 03:29 Triage completed. jb4 03:58 XRAY Chest (1 view) In Process Unspecified. EDMS 04:26 Radiology exam delayed due to lab results not completed at this time. (BUN/Creatinine). kw1 05:07 CT Chest For PE Angio In Process Unspecified. EDMS 06:09 Akbar Jordan MD is Referral Physician. ed 06:15 No provider procedures requiring assistance completed. IV discontinued, intact, jb4 bleeding controlled, No redness/swelling at site. Pressure dressing applied. Administered Medications: No medications were administered Outcome: 06:09 Discharge ordered by . ed 06:15 Discharged to home ambulatory. jb4 06:15 Condition: stable 06:15 Discharge instructions given to patient, Instructed on discharge instructions, follow up and referral plans. Demonstrated understanding of instructions, follow-up care. 06:32 Patient left the ED. jb4 Signatures: Dispatcher [employer] EDCT William Lazcano MD MD cha Sanford, Demi ds1 Benja Carlson, RN RN jb4 Violeta Hodgson kw1 Corrections: (The following items were deleted from the chart) 04:33 04:15 Reassessment: Patient appears in no apparent distress at this time. Patient jb4 and/or family updated on plan of care and expected duration. Pain level reassessed. Patient is alert, oriented x 3, equal unlabored respirations, skin warm/dry/pink. Pt reports dizziness worsens when he stands up. Orthostatic blood pressures performed. jb4
--- NOTE | 2020-02-04 06:10 | EDPHYS ---
Physician Documentation [facility] Name: Wiley Valle Age: 44 yrs Sex: Male : 1975 Arrival Date: 02/04/2020 Time: 03:14 Bed 18 Private MD: ED Physician William Lazcaon HPI: 02/03 03:40 This 44 yrs old Male presents to ER via Ambulatory with complaints of ed Dizziness, Breathing Difficulty. 03:40 The patient presents with dizziness, generalized weakness. Onset: The symptoms/episode ed began/occurred 2 day(s) ago. Context: occurred at an unknown location. Modifying factors: The symptoms are alleviated by nothing, the symptoms are aggravated by nothing. Associated signs and symptoms: The patient has no apparent associated signs or symptoms. Severity of symptoms: At their worst the symptoms were mild moderate in the emergency department the symptoms are unchanged. Patient's baseline: Neuro: alert and fully oriented. The patient has not experienced similar symptoms in the past. Historical: - Allergies: 03:18 steroids (rash); jb4 - Home Meds: 03:18 None [Active]; jb4 - PMHx: 03:18 Kidney stones; jb4 - PSHx: 03:18 Lithotripsy; jb4 - Immunization history:: Adult Immunizations up to date. - Social history:: Smoking status: Patient denies any tobacco usage or history of. Patient uses alcohol, occasionally. Patient/guardian denies using street drugs. - Family history:: not pertinent. ROS: 03:40 Constitutional: Negative for fever, chills, and weight loss, Eyes: Negative for injury, ed pain, redness, and discharge, ENT: Negative for injury, pain, and discharge, Neck: Negative for injury, pain, and swelling, Cardiovascular: Negative for chest pain, palpitations, and edema, Abdomen/GI: Negative for abdominal pain, nausea, vomiting, diarrhea, and constipation, Back: Negative for injury and pain, : Negative for injury, bleeding, discharge, and swelling, MS/Extremity: Negative for injury and deformity, Skin: Negative for injury, rash, and discoloration, Neuro: Negative for headache, weakness, numbness, tingling, and seizure, Psych: Negative for depression, anxiety, suicide ideation, homicidal ideation, and hallucinations, Allergy/Immunology: Negative for hives, rash, and allergies, Endocrine: Negative for neck swelling, polydipsia, polyuria, polyphagia, and marked weight changes, Hematologic/Lymphatic: Negative for swollen nodes, abnormal bleeding, and unusual bruising. 03:40 Respiratory: Positive for shortness of breath. Exam: 03:40 Constitutional: This is a well developed, well nourished patient who is awake, alert, ed and in no acute distress. Head/Face: Normocephalic, atraumatic. Eyes: Pupils equal round and reactive to light, extra-ocular motions intact. Lids and lashes normal. Conjunctiva and sclera are non-icteric and not injected. Cornea within normal limits. Periorbital areas with no swelling, redness, or edema. ENT: Nares patent. No nasal discharge, no septal abnormalities noted. Tympanic membranes are normal and external auditory canals are clear. Oropharynx with no redness, swelling, or masses, exudates, or evidence of obstruction, uvula midline. Mucous membranes moist. Neck: Trachea midline, no thyromegaly or masses palpated, and no cervical lymphadenopathy. Supple, full range of motion without nuchal rigidity, or vertebral point tenderness. No Meningismus. Chest/axilla: Normal chest wall appearance and motion. Nontender with no deformity. No lesions are appreciated. Cardiovascular: Regular rate and rhythm with a normal S1 and S2. No gallops, murmurs, or rubs. Normal PMI, no JVD. No pulse deficits. Respiratory: Lungs have equal breath sounds bilaterally, clear to auscultation and percussion. No rales, rhonchi or wheezes noted. No increased work of breathing, no retractions or nasal flaring. Abdomen/GI: Soft, non-tender, with normal bowel sounds. No distension or tympany. No guarding or rebound. No evidence of tenderness throughout. Back: No spinal tenderness. No costovertebral tenderness. Full range of motion. Male : Normal genitalia with no discharge or lesions. Skin: Warm, dry with normal turgor. Normal color with no rashes, no lesions, and no evidence of cellulitis. MS/ Extremity: Pulses equal, no cyanosis. Neurovascular intact. Full, normal range of motion. Neuro: Awake and alert, GCS 15, oriented to person, place, time, and situation. Cranial nerves II-XII grossly intact. Motor strength 5/5 in all extremities. Sensory grossly intact. Cerebellar exam normal. Normal gait. Psych: Awake, alert, with orientation to person, place and time. Behavior, mood, and affect are within normal limits. 04:05 Cardiovascular: Rate: normal, Rhythm: regular, Pulses: no pulse deficits are ed appreciated, Heart sounds: normal, normal S1and S2, no S3 or S4, no murmur, no rub, no gallop, Edema: is not appreciated, JVD: is not appreciated. 04:05 Musculoskeletal/extremity: DVT Exam: No signs of deep vein thrombosis. no pain, no swelling, no tenderness, negative Homans' sign noted on exam, no appreciated bluish discoloration, no erythema, no increased warmth. 04:54 Musculoskeletal/extremity: Extremities: all appear grossly normal, with no appreciated ed pain with palpation, ROM: full active range of motion, full passive range of motion, Circulation is intact in all extremities. Sensation intact. Compartment Syndrome exam of affected extremity: is normal. Joints: All joints appear normal with full range of motion. Weight bearing: able to fully bear weight, Tendon exam: Vital Signs: 03:18 BP 125 / 77; Pulse 67; Resp 18; Temp 98.6(O); Pulse Ox 100% on R/A; Weight 90.72 kg jb4 (R); Height 6 ft. 1 in. (185.42 cm); Pain 0/10; 04:08 BP 115 / 63 LA Supine; Pulse 69; Resp 16; Pulse Ox 99% on R/A; jb4 04:09 BP 108 / 81 LA Sitting; Pulse 74; Resp 16; Pulse Ox 100% on R/A; jb4 04:11 BP 108 / 79; Pulse 62; Resp 18; Pulse Ox 100% on R/A; jb4 05:30 BP 109 / 74; Pulse 60; Resp 10; Pulse Ox 100% on R/A; jb4 06:15 BP 110 / 66; Pulse 65; Resp 16; Pulse Ox 100% on R/A; jb4 03:18 Body Mass Index 26.39 (90.72 kg, 185.42 cm) jb4 MDM: 03:17 Patient medically screened. [facility] 03:44 Data reviewed: vital signs, nurses notes, lab test result(s), EKG, radiologic studies, [facility] CT scan, plain films. 02/03 03:40 Order name: Basic Metabolic Panel [facility] 02/03 03:40 Order name: CBC with Diff [facility] 02/03 03:40 Order name: LFT's [facility] 02/03 03:40 Order name: Magnesium; Complete Time: 04:39 [facility] 02/03 03:40 Order name: NT PRO-BNP; Complete Time: 04:39 [facility] 02/03 03:40 Order name: PT-INR; Complete Time: 04:26 [facility] 02/03 03:40 Order name: Troponin (emerg Dept Use Only); Complete Time: 04:39 [facility] 02/03 03:40 Order name: XRAY Chest (1 view) [facility] 02/03 03:40 Order name: Basic Metabolic Panel; Complete Time: 04:39 EDMS 02/03 03:40 Order name: CBC with Automated Diff; Complete Time: 04:26 EDMS 02/03 03:40 Order name: Liver (Hepatic) Function; Complete Time: 04:39 EDMS 02/03 04:28 Order name: Troponin (emerg Dept Use Only): 630am; Complete Time: 05:38 [facility] 02/03 05:40 Order name: Troponin (emerg Dept Use Only); Complete Time: 06:08 jb4 02/03 06:32 Order name: Urine Dipstick--Ancillary (enter results) 2 02/03 03:40 Order name: EKG; Complete Time: 03:41 [facility] 02/03 03:40 Order name: Cardiac monitoring; Complete Time: 03:41 [facility] 02/03 03:40 Order name: EKG - Nurse/Tech; Complete Time: 04:07 [facility] 02/03 03:40 Order name: IV Saline Lock; Complete Time: 04:07 [facility] 02/03 03:40 Order name: Labs collected and sent; Complete Time: 04:07 [facility] 02/03 03:40 Order name: O2 Per Protocol; Complete Time: 03:41 [facility] 02/03 03:40 Order name: O2 Sat Monitoring; Complete Time: 03:41 [facility] 02/03 03:40 Order name: CT Chest For PE Angio ed Administered Medications: No medications were administered Disposition: 02/04/20 06:09 Discharged to Home. Impression: Dyspnea. - Condition is Stable. - Discharge Instructions: Dizziness, Shortness of Breath, Shortness of Breath, [id number], Dizziness, [id number]. - Medication Reconciliation Form, Thank You Letter, Antibiotic Education, Prescription Opioid Use form. - Follow up: Private Physician; When: 2 - 3 days; Reason: Recheck today's complaints, Continuance of care, Re-evaluation by your physician. Follow up: Akbar Jordan; When: 2 - 3 days; Reason: Recheck today's complaints, Re-evaluation by your physician. - Problem is new. - Symptoms have improved. Signatures: Dispatcher [employer] EDAL William Lazcano MD MD cha Bryson, James RN RN jb4 Corrections: (The following items were deleted from the chart) 06:32 06:09 02/04/2020 06:09 Discharged to Home. Impression: Dyspnea. Condition is Stable. jb4 Discharge Instructions: Dizziness, Shortness of Breath, Shortness of Breath, [id number], Dizziness, [id number]. Forms are Medication Reconciliation Form, Thank You Letter, Antibiotic Education, Prescription Opioid Use. Follow up: Private Physician; When: 2 - 3 days; Reason: Recheck today's complaints, Continuance of care, Re-evaluation by your physician. Follow up: Akbar Jordan; When: 2 - 3 days; Reason: Recheck today's complaints, Re-evaluation by your physician. Problem is new. Symptoms have improved. ed
[2020-02-04 06:39] VITALS: TEMP 98.6
[2020-02-04 06:41] VITALS: O2SAT 100
[2020-02-04 06:46] VITALS: BP 110/66
[2020-02-04 07:35] LABS: Urine Blood NEGATIVE (NEG); Urine Glucose NEGATIVE (NEG); Urine Protein NEGATIVE (NEG); Urine pH 8.5 (5.0-7.0)
--- NOTE | 2020-02-04 08:04 | RAD REPORT ---
EXAM DESCRIPTION: Fabrizio Single View02/04/2020 3:58 am CLINICAL HISTORY: sob COMPARISON: September 2019 FINDINGS: The lungs are hyperaerated. The lungs appear clear of acute infiltrate. The heart is normal size IMPRESSION: No acute abnormalities displayed
--- NOTE | 2020-02-04 08:08 | EKG ---
Test Date: 2020-02-04 Test Time: 03:48:45 Deployment Technician: ASAEL MEASUREMENT RESULTS: Intervals: Rate: 62 NJ: 172 QRSD: 102 QT: 386 QTc: 391 Brooks: P: 46 NJ: 172 QRS: 71 T: 39 INTERPRETIVE STATEMENTS: Normal sinus rhythm Normal ECG No previous ECG available for comparison Electronically Signed On 02-04-20 08:07:30 CDT by London Mahajan
--- NOTE | 2020-02-04 11:50 | RAD REPORT ---
EXAM DESCRIPTION: CT - Chest For Pe Angio - 02/04/2020 6:41 am CLINICAL HISTORY: Dyspnea;Cough COMPARISON: None Available. TECHNIQUE: CTA of the chest obtained following the uncomplicated intravenous administration of iodin ated contrast.. 3-D/MIP reformatted images of the chest available for evaluation. FINDINGS: Chest: Pulmonary arteries: Contrast bolus is adequate.No filling defects identified in the pulmonary arterie s to suggest pulmonary embolus. Thyroid: No abnormalities of the visualized thyroid. Great Vessels: Great vessels have normal anatomic configuration. Thoracic Aorta: No abnormalities of the thoracic aorta identified. Heart: No cardiomegaly, significant pericardial effusion, or coronary artery atherosclerosis Lymph Nodes: No enlarged mediastinal lymph nodes identified. Esophagus: No abnormalities of the esophagus identified. Other: No additional findings. Lungs: No airspace opacities identified. Pleura: No pleural effusion or pneumothorax. Trachea/Airways: No abnormalities of the visualized trachea or airways. Bones: Degenerative change of the spine. Upper Abdomen: Limited images of the upper abdomen demonstrate no definite abnormalities of visualize d portions of the liver, gallbladder, pancreas, spleen, adrenal glands, or kidneys. IMPRESSION: 1. No acute pulmonary embolism identified. This exam was performed according to our departmental dose-optimization program, which includes autom ated exposure control, adjustment of the mA and/or kV according to patient size and/or use of iterati ve reconstruction technique. Electronically signed by: Kerwin Reardon 02/04/2020 5:18 AM CDT Due to temporary technical issues with the PACS/Fluency reporting system, reports are being signed by the in house radiologist as a courtesy to ensure prompt reporting. The interpreting radiologist is f ully responsible for the content of the report.
== END 2020-02-04 06:32 | disposition home or self-care (01) ==
LOC: ER 03:12
DX: R06.00 Dyspnea, unspecified (principal)
CPT/HCPCS: 93005; 85025; 80048; 36415; 83735; 85610; 80076; 81003; 84484 ×3; 83880; 71275; 71045; 99284; Q9967